=== PATIENT | male | born 1975 | race Hispanic/Latino ===

== ENCOUNTER 2021-06-12 15:18 | Emergency (ER) | payer BC ==
--- NOTE | 2021-06-12 16:07 | Emergency Department Report ---
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 Patient reports that he was at the airport, getting ready to get on a plane, when he reportedly had a convulsive event. He denies physical pain. He reports that he feels like he is back to his baseline. He is not homicidal or suicidal. He has never had a seizure or convulsion before. He denies recreational drug use currently -: Sudden Consistency: now resolved Improves with: none Worsens with: none - Related Data Allergies Allergy/AdvReac Type Severity Reaction Status Date / Time No Known Allergies Allergy Verified 06/12/21 15:25 ED Review of Systems ROS: Stated complaint: ABDOMINAL PAIN Other details as noted in HPI Neurological: other (Seizure versus syncope) ED Past Medical Hx - Past Medical History Previous Medical History?: No ED Physical Exam - General Limitations: No Limitations General appearance: alert, anxious - Head Head exam: Present: atraumatic, normocephalic - Eye Eye exam: Present: normal appearance, PERRL, EOMI. Absent: nystagmus - ENT ENT exam: Present: normal exam, normal orophraynx, mucous membranes moist, no rmal external ear exam - Neck Neck exam: Present: normal inspection, full ROM. Absent: tenderness, meningismus - Respiratory Respiratory exam: Present: normal lung sounds bilaterally. Absent: respiratory distress, wheezes, rales, rhonchi, stridor, decreased breath sounds - Cardiovascular Cardiovascular Exam: Present: normal rhythm, tachycardia, normal heart sounds. Absent: bradycardia, irregular rhythm, systolic murmur, diastolic murmur, rubs, gallop - GI/Abdominal GI/Abdominal exam: Present: soft. Absent: distended, tenderness, guarding, rebound, rigid, pulsatile mass - Rectal Rectal exam: Present: deferred - Extremities Exam Extremities exam: Present: normal inspection, full ROM, other (2+ pulses noted in the bilateral upper and lower extremities. There is no palpable cord. negative Homans sign. Muscular compartments are soft. The pelvis is stable.). Absent: pedal edema, calf tenderness - Back Exam Back exam: Present: normal inspection. Absent: tenderness, CVA tenderness (R), CVA tenderness (L), paraspinal tenderness, vertebral tenderness - Neurological Exam Neurological exam: Present: alert, oriented X3, other (No facial droop. Tongue midline. Extraocular movements intact bilaterally. Facial sensation intact to light touch in V1, V2, V3 distribution bilaterally. 5 and a 5 strength in 4 extremities. Sensation intact to light touch in 4 extremities.). Absent: motor sensory deficit - Psychiatric Psychiatric exam: Present: anxious. Absent: homicidal ideation, suicidal ideation - Skin Skin exam: Present: warm, dry, intact, normal color. Absent: rash ED Course Vital Signs 06/12/21 06/12/21 06/12/21 15:25 15:42 15:45 Pulse Rate 118 H 108 H 104 H Respiratory 14 12 Rate Blood Pressure 123/75 Blood Pressure 128/73 [Left] O2 Sat by Pulse 99 95 93 Oximetry 06/12/21 15:57 Pulse Rate Respiratory Rate Blood Pressure Blood Pressure [Left] O2 Sat by Pulse 100 Oximetry - Pulse Oximetry Interpretation Digit-Finger Initial Pulse Oximetry Readin O2 Sat by Pulse Oximetry: 99 Actions Taken: none ED Medical Decision Making - Lab Data Vital Signs 06/12/21 06/12/21 06/12/21 15:25 15:42 15:45 Pulse Rate 118 H 108 H 104 H Respiratory 14 12 Rate Blood Pressure 123/75 Blood Pressure 128/73 [Left] O2 Sat by Pulse 99 95 93 Oximetry 06/12/21 15:57 Pulse Rate Respiratory Rate Blood Pressure Blood Pressure [Left] O2 Sat by Pulse 100 Oximetry - Medical Decision Making Differential diagnosis, including but not limited to: Seizure, electrolyte derangement, withdrawal Assessment and plan: 45-year-old gentleman, with first lifetime onset convulsive event. He is clinically sober with a GCS of 15, and exhibits decision-making capacity. He is free from distracting injury. I recommended evaluation in the emergency room, with a CBC, comprehensive metabolic panel, noncontrast CT scan o f the brain, and an EKG. Also advised the patient to not drive or operate motor vehicles for the next 6 months. Patient is declining these recommended evaluations. He would like to be discharged from emergency room. Explained to the patient that he would be discharged AGAINST MEDICAL ADVICE, and by leaving, he would be assuming the risks of , disability, paralysis, permanent loss of quality of life. Patient currently awake, alert, oriented, sober, of sound mind and exhibits decision-making capacity. He understands these risks. He understands that he may return to the emergency room right away if and when he changes his mind Critical care attestation.: If time is entered above; I have spent that time in minutes in the direct care of this critically ill patient, excluding procedure time. ED Disposition Clinical Impression: History of convulsions Disposition: 07 LEFT AGAINST MEDICAL ADVICE Is pt being admited?: No Does the pt Need Aspirin: No Condition: Undetermined Instructions: Seizure, Adult, [id number] Additional Instructions: As we discussed, you have left the hospital/emergency room AGAINST MEDICAL ADVICE. By leaving, you risked , disability, paralysis, permanent loss of quality of life. The ER is open 24 hours a day, 7 days a week. It never closes. Please return to the emergency room right away if and when you change your mind. If you decide not to return to the emergency room, please follow-up with the listed physician referrals as soon as possible. Do not drive or operate motor vehicles for the next 6 months. Referrals: [facility] [Provider Group] - 3-5 Days MEGAN WHITMAN MD [Referring] - 3-5 Days RODRIGO CHAPARRO MD [Staff Physician] - 3-5 Days Forms: AMA Form
[2021-06-12 16:57] VITALS: BP 113/74
== END 2021-06-12 17:36 | disposition left against medical advice (07) ==
LOC: ED 15:18
DX: Z02.79 Encounter for issue of other medical certificate (principal); F44.4 Conversion disorder with motor symptom or deficit
CPT/HCPCS: 99284